=== PATIENT | male | born 2005 | race Caucasian/White ===

== ENCOUNTER 2024-05-02 09:14 | Emergency (ER) | payer MEDICAID, OTHER ==
[2024-05-02] MEDS: Ibuprofen 200 MG Tab PO ONE (09:34)
[2024-05-02] MEDS: Acetaminophen 500 MG Tab PO ONE (09:34)
== END 2024-05-02 10:21 | disposition home or self-care (01) ==
LOC: VM.ED 09:14
DX: J10.1 Influenza due to other identified influenza virus with other respiratory manifestations (principal)
CPT/HCPCS: 87428; 87651; 99283; A9270

== ENCOUNTER 2025-02-17 16:11 | Emergency (ER) | payer MEDICAID ==
[2025-02-17 16:42] LABS: BASOPHILS ABSOLUTE AUTO 0.1 x10^3/uL (0.0-0.2); BASOPHILS PERCENT AUTO 0.6 % (0.2-1.2); EOSINOPHILS ABSOLUTE AUTO 0.3 x10^3/uL (0.0-0.5); EOSINOPHILS PERCENT AUTO 3.7 % (0.0-4.0); IMMATURE GRAN ABSOLUTE AUTO 0.02 x10^3/uL (0.00-0.07); IMMATURE GRAN PERCENT AUTO 0.30 % (0.00-0.43); LYMPHOCYTES ABSOLUTE AUTO 2.7 x10^3/uL (1.0-4.8); LYMPHOCYTES PERCENT AUTO 34.9 % (25.0-50.0); MONOCYTES ABSOLUTE AUTO 0.6 x10^3/uL (0.0-0.8); MONOCYTES PERCENT AUTO 7.3 % (2.0-11.0); NEUTROPHILS ABSOLUTE AUTO 4.2 x10^3/uL (1.8-7.7); NEUTROPHILS PERCENT AUTO 53.2 % (50.0-80.0); PLATELET COUNT,PLT 261 x10^3/uL (130-400); RED BLOOD CELL COUNT 5.00 x10^6/uL (4.5-6.0); WHITE BLOOD CELL COUNT,WBC 7.9 x10^3/uL (4.0-10.0)
[2025-02-17 17:05] LABS: A/G RATIO 1.03; ALANINE AMINOTRANSFERASE,ALT 40 U/L (16-63); ASPARTATE AMNIOTRANSFERASE,AST 37 U/L (15-37); BILIRUBIN TOTAL 1.0 mg/dL (0.2-1.0); BLOOD UREA NITROGEN,BUN 19 mg/dL (7-18); CARBON DIOXIDE,CO2 28 mmol/L (21-32); CHLORIDE,CL 104 mmol/L (98-107); CREATININE 1.3 mg/dL (0.70-1.30); ESTIMATED GFR 80 mL/min (>=60); GLUCOSE RANDOM 113 mg/dL (70-99); POTASSIUM,K 3.5 mmol/L (3.5-5.1); PROTEIN TOTAL,TP 7.5 g/dL (6.4-8.2); SODIUM,NA 142 mmol/L (136-145)
== END 2025-02-17 18:31 | disposition home or self-care (01) ==
LOC: VM.ED 16:11
DX: R07.89 Other chest pain (principal)
CPT/HCPCS: 36415; 71046; 80053; 84484; 85025; 93005; 99285